=== PATIENT | female | born 1990 | race Caucasian/White ===

== ENCOUNTER 2017-08-14 09:28 | Emergency (ER) | payer SELFPAY ==
[~2017-08-14] VITALS: Ht 167.6 cm; Wt 86.2 kg
[~2017-08-14 09:28] MED LIST: AMOXICILLIN500 MG PO; AUGMENTIN 500 M1 TAB PO; AUGMENTIN 500500 M1 PO; CATAFLAM50 MG PO; FERROUS SULFATE65 MG PO; IBU800 M1 PO; IRON325 M1 PO; MUCINEX DM 30 M1 TE1 PO; PEPCID20 MG PO; PNV-SELECT1 TAB PO; PRENATABS CBF1 TAB PO; REGLAN10 MG PO; ULTRAM50 MG PO; ZOFRAN ODT4 MG SL; Zofran4 MG PO
[2017-08-14] MEDS ORDERED: CLARITIN-D 121 EACH PO (10:08)
== END 2017-08-14 10:20 | disposition home or self-care (01) ==
LOC: ED 09:28
DX: H69.81 Other specified disorders of Eustachian tube, right ear (principal); Z79.899 Other long term (current) drug therapy